=== PATIENT | female | born 1995 | race Caucasian/White ===

== ENCOUNTER 2023-01-25 01:31 | Inpatient (IN) ==
[2023-01-25] MEDS ORDERED: Al Hydrox/Mg Hydrox/Simet LIQ 30 ML UDC PO PRN (10:57)
[2023-01-25] MEDS: Nicotine GUM 2MG FRUIT FLAVOR PO PRN (17:06)
[2023-01-26] MEDS: Nicotine GUM 2MG FRUIT FLAVOR PO PRN ×2 (08:09→13:56)
[2023-01-26 08:56] VITALS: BP 109/70
[2023-01-26] MEDS ORDERED: DULoxetine DR 30 mg CAP PO SCH (09:00)
[2023-01-26] MEDS ORDERED: Vitamin THERAPEUTIC TAB PO SCH (09:00)
[2023-01-26 09:06] LABS: HDL Cholesterol 35.3 mg/dL
== END 2023-01-26 14:45 | disposition home or self-care (01) | DRG 812 ==
LOC: ED 01:31 → EDHOLD 09:49 → BSU 11:42
PROVIDERS: ADMIT Psychiatry & Neurology Addiction Psychiatry; ATTEND Student in an Organized Health Care Education/Training Program